=== PATIENT | female | born 1960 | race Caucasian/White ===

== ENCOUNTER → 2017-12-04 | Outpatient (CLI) | payer BC ==
[2017-12-04 16:54] LABS: BLOOD UREA NITROGEN 20 mg/dl (7-18); CALCIUM 9.8 mg/dl (8.5-10.1); CARBON DIOXIDE 28 mmol/L (21-32); CREATININE 1.61 mg/dl (0.60-1.20); GLUCOSE 132 mg/dl (70-99); SODIUM 139 mmol/L (136-145)
[2017-12-04 17:04] LABS: CREATININE RANDOM URINE 92.9 mg/dl
[2017-12-04 17:05] LABS: CHOLESTEROL 162 mg/dl (0-200); LDL CHOLESTEROL CALCULATED 63 mg/dl
[2017-12-05 06:34] LABS: HEMOGLOBIN A1C 8.2 % (4.5-5.6)
== END | disposition home or self-care (01) ==
LOC: C.LABPBG 14:01
PROVIDERS: ATTEND Nurse Practitioner Family
DX: E11.65 Type 2 diabetes mellitus with hyperglycemia (principal)

== ENCOUNTER → 2017-12-19 | Outpatient (CLI) | payer BC ==
[2017-12-19 13:39] LABS: BLOOD UREA NITROGEN 23 mg/dl (7-18); CALCIUM 9.5 mg/dl (8.5-10.1); CARBON DIOXIDE 29 mmol/L (21-32); CREATININE 1.03 mg/dl (0.60-1.20); GLUCOSE 289 mg/dl (70-99); SODIUM 138 mmol/L (136-145)
== END | disposition home or self-care (01) ==
LOC: C.LABPBG 09:48
PROVIDERS: ATTEND Nurse Practitioner Family
DX: E11.65 Type 2 diabetes mellitus with hyperglycemia (principal); E78.5 Hyperlipidemia, unspecified

== ENCOUNTER → 2018-01-21 | Outpatient (CLI) | payer BC | END | disposition home or self-care (01) | LOC: C.PAPS 10:04 | PROVIDERS: ATTEND Obstetrics & Gynecology | DX: Z01.419 Encounter for gynecological examination (general) (routine) without abnormal findings (principal) ==

== ENCOUNTER 2020-05-25 05:50 | Inpatient (IN) ==
--- NOTE | 2020-01-05 08:17 | History & Physical Report ---
Date of Service January 05, 2020 date of surgery: 02-03-20 Assessment & Plan (1) Osteoarthritis of right knee: Risks and benefits of procedure discussed in detail today, patient would like to proceed with a Right total knee replacement at [facility] as scheduled. will obtain medical clearance from Dr Cee prior to surgery as well as obtain PATs at [facility]. Will place on ASA 81mg po bid x 1 month post op, f/u 2 weeks post op for routine post-operative care and x-ray, sooner if having any problems. will make arrangements for HHPT at the time of discharge. At this point in time, has failed conservative measures and would like to proceed with surgical intervention. History of Present Illness Chief Complaint: Right knee pain Primary Care Provider: Roxi Cee DO Ms Hendrickson is a 59 year old female who complains of right knee pain, presents for pre-op evaluation prior to a right total knee replacement at [facility]. She presents with pain on the right side. Currently the patient states that the symptoms are moderate-severe. The pain is described as aching, sharp and throbbing. The symptoms are aggravated by ascending stairs, descending stairs, daily activities, driving, first steps while awake, kneeling, movement, repetitive activities, sleeping on the affected side, squatting, standing, walking and weight bearing. In addition to right knee pain the patient is also experiencing limping, nighttime awakening and pain. Patient has had arthroscopic surgery, on 06/25/2013 Dr. Barakat performed right knee arthroscopy, Partial medial meniscectomy, partial lateral meniscectomy, chondroplasty, patella. she has also had prior cortisone injections without much relief. Allergies Allergy/AdvReac Type Severity Reaction Status Date / Time nifedipine Allergy Unknown LEGS Verified 10/16/19 15:20 SWELLED Fkarrpq-Igx-Jjc Reductase AdvReac Mild Verified 12/26/19 08:05 Inhibitor Sulfa (Sulfonamide AdvReac Mild Verified 12/26/19 08:05 Antibiotics) codeine AdvReac Unknown Verified 12/26/19 08:05 Home Medications Home Medications Medication Instructions Recorded Confirmed Type triamcinolone acetonide 0.025 % See Rx Instructions TOPICAL DAILY 03/31/19 12/26/19 History topical cream gm nystatin 100,000 unit/gram topical 1 appln TOP DAILY #60 gm 07/08/19 12/26/19 Rx powder metformin 1,000 mg tablet 1,000 mg PO BID 90 Days #180 tab 11/03/19 12/26/19 Rx insulin aspart U-100 100 unit/mL See Rx Instructions SUBCUT DAILY 11/06/19 12/26/19 Rx (3 mL) subcutaneous pen #30 ml chlorthalidone 25 mg PO QAM 12/26/19 12/26/19 History insulin degludec [Tresiba 90 units SUBCUT QAM 12/26/19 12/26/19 History FlexTouch U-100] lisinopril 40 mg PO QAM 12/26/19 12/26/19 History metoprolol tartrate 50 mg PO QAM 12/26/19 12/26/19 History wqpphuxk-wob-YL-lycopen-lutein 1 tab PO QAM 12/26/19 12/26/19 History [Centrum Silver] Past Med/Surg History Medical History Carpal tunnel syndrome with surgery Carpal tunnel syndrome of left wrist Diabetes (Chronic) IDDM Dyslipidemia (Chronic) Hypertension (Chronic) Malignant neoplasm of skin (Chronic) Pain in unspecified hand Skin infection, bacterial (Resolved) OCCASIONALLY - USES PRN CREAMS Vitamin D deficiency (Chronic) Surgical History Arthropathy of right knee H/O arthroscopy of left knee H/O dilation and curettage 1980 H/O tubal ligation 08/1982 History of cardiac cath 2002 - IN [place], HARD HYPERTENSION, NOTHING FOUND, AND 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 Beliefs That Will Affect Care: None marital status: Current Living Situation: Spouse current occupational status: employed 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 Other Information That Helps Us Care for You: No Feels Safe at Home: Yes Safety Concerns: Feels Safe At This Time Smoking Status: Former smoker Do You Dip or Chew Tobacco: No ; Smoking End Date: 18 YEARS AGO ; Second Hand Exposure: No ; Hx Alcohol Use: Yes Alcohol type: beer, wine and hard liquor Alcohol Intake Frequency: Rarely Hx Substance Use: No Childhood Exposure to Second-Hand Smoke: No Diet Comment: regular caffeine: Yes (coffee, hot tea) during the past year weight has: remained stable Dental Care, Regularly: Yes Physical Activity Frequency: 3-4 Times per Week Seatbelt Use: always Sunscreen Use: Yes Review of Systems Review of Systems: All systems reviewed & are unremarkable except as noted in HPI & below Constitutional: no fever, no chills and no sweats Respiratory: no cough and no dyspnea Cardiovascular: no chest pain, no dyspnea and no orthopnea Gastrointestinal: no abdominal pain, no nausea and no vomiting Musculoskeletal: as per Subjective / HPI Physical Exam Physical Exam: ht: 5ft 4in wt: 95kg Constitutional: WD/WN, vitals as above no acute distress Respiratory: normal respiratory effort, lungs clear to auscultation no respiratory distress, no labored breathing and does not use accessory muscles Cardiovascular: RRR, no murmur, no edema Gastrointestinal (Abdomen): normal bowel sounds, soft, nontender, no hepatosplenomegaly Musculoskeletal: Knee: + knee abnormal to inspection (Right knee), + effusion (+1 effusion), + limited ROM of knee (ROM 0/3/110), + knee ROM with crepitation, + joint line tenderness (medial joint line) and + Kika's sign positive; no deformity, no skin erythema, no ecchymosis, no valgus laxity, no varus laxity, anterior drawer test negative, Daniel's sign negative and pivot shift test negative Results & Data Results & Data ([facility]) Diagnostic Findings Right Knee X-ray from October 2019 showing showing advanced degenerative changes to the right knee, narrowing of the medial compartment and patello- femoral joint with patellar spurring noted, findings showing joint space narrowing of the medial compartment and patello-femoral joint, osteophyte formation and subchondral sclerosis noted. overall varus alignment. no acute bony pathology noted.
--- NOTE | 2020-05-03 08:36 | History & Physical Report ---
Date of Service May 03, 2020 date of surgery: 05-25-20 Procedure: right total knee replacement Assessment & Plan (1) Osteoarthritis of right knee: Risks and benefits of procedure discussed in detail today, patient would like to proceed with a Right total knee replacement at [facility] as scheduled. will obtain medical clearance from Dr Cee prior to surgery as well as obtain PATs at [facility]. Will place on ASA 81mg po bid x 1 month post op, f/u 2 weeks post op for routine post-operative care and x-ray, sooner if having any problems. will make arrangements for HHPT at the time of discharge. At this point in time, has failed conservative measures and would like to proceed with surgical intervention. History of Present Illness Chief Complaint: Right knee pain Primary Care Provider: Roxi Cee DO Ms Hendrickson is a 59 year old female who complains of right knee pain, presents for pre-op evaluation prior to a right total knee replacement at [facility]. She presents with pain on the right side. Currently the patient states that the symptoms are moderate-severe. The pain is described as aching, sharp and throbbi ng. The symptoms are aggravated by ascending stairs, descending stairs, daily activities, driving, first steps while awake, kneeling, movement, repetitive activities, sleeping on the affected side, squatting, standing, walking and weight bearing. In addition to right knee pain the patient is also experiencing limping, nighttime awakening and pain. Patient has had arthroscopic surgery, on 06/25/2013 Dr. Barakat performed right knee arthroscopy, Partial medial meniscectomy, partial lateral meniscectomy, chondroplasty, patella. she has also had prior cortisone injections without much relief. Allergies Allergy/AdvReac Type Severity Reaction Status Date / Time nifedipine Allergy Unknown LEGS Verified 04/01/20 12:19 SWELLED Fvycsrw-Pje-Ypk Reductase AdvReac Mild Verified 04/01/20 12:19 Inhibitor Sulfa (Sulfonamide AdvReac Mild Verified 04/01/20 12:19 Antibiotics) codeine AdvReac Unknown Verified 04/01/20 12:19 Home Medications Home Medications Medication Instructions Recorded Confirmed Type triamcinolone acetonide 0.025 % See Rx Instructions TOPICAL DAILY 03/31/19 04/01/20 History topical cream gm nystatin 100,000 unit/gram topical 1 appln TOP DAILY #60 gm 07/08/19 04/01/20 Rx powder metformin 1,000 mg tablet 1,000 mg PO BID 90 Days #180 tab 11/03/19 04/01/20 Rx insulin aspart U-100 100 unit/mL See Rx Instructions SUBCUT DAILY 11/06/19 04/01/20 Rx (3 mL) subcutaneous pen #30 ml lisinopril 40 mg PO QAM 12/26/19 04/01/20 History metoprolol tartrate 50 mg PO QAM 12/26/19 04/01/20 History htqypbgs-wur-TH-lycopen-lutein 1 tab PO QAM 12/26/19 04/01/20 History [Centrum Silver] chlorthalidone 25 mg tablet 25 mg PO QAM #30 tab 02/12/20 04/01/20 Rx insulin degludec 100 unit/mL (3 90 units SUBCUT QAM #30 ml 03/30/20 04/01/20 Rx mL) subcutaneous pen phenazopyridine 100 mg tablet 100 mg PO TID PRN #6 tab 04/01/20 04/01/20 Rx ciprofloxacin HCl 500 mg tablet 500 mg PO Q12H 5 Days #10 tab 04/08/20 Rx Past Med/Surg History Medical History Carpal tunnel syndrome with surgery Carpal tunnel syndrome of left wrist Diabetes IDDM Dyslipidemia Hypertension Malignant neoplasm of skin Pain in unspecified hand Skin infection, bacterial OCCASIONALLY - USES PRN CREAMS Vitamin D deficiency Surgical History Arthropathy of right knee H/O arthroscopy of left knee H/O dilation and curettage 1980 H/O tooth extraction H/O tubal ligation 08/1982 History of cardiac cath 2002 - IN [place], HARD HYPERTENSION, NOTHING FOUND, AND 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 History of carpal tunnel surgery History of esophagogastroduodenoscopy (EGD) S/P tonsillectomy 1965 Family History Father Hypertension Cancer, Onset Age: 69 Initially lung then spread to brain Myocardial infarction, Onset Age: 50 Sister Papillary thyroid carcinoma Thyroid disease Thyroid cancer Denies family history of Colon cancer Ovarian cancer Prostate cancer Breast cancer Social History Smoking Status: Former smoker Smoking End Date: 18 YEARS AGO; Second Hand Exposure: No; Do You Dip or Chew Tobacco: No; Hx Alcohol Use: Yes Alcohol type: beer, wine and hard liquor Hx Substance Use: No Preferred Language: Burundian Communication Ability: Effective Visual Impairment: No Limitations Hearing Ability: Normal 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: Yes Beliefs That Will Affect Care: None marital status: Current Living Situation: Spouse current occupational status: employed 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 Other Information That Helps Us Care for You: No Feels Safe at Home: Yes Safety Concerns: Feels Safe At This Time Childhood Exposure to Second-Hand Smoke: No Diet Comment: regular caffeine: Yes (coffee, hot tea) during the past year weight has: remained stable Dental Care, Regularly: Yes Physical Activity Frequency: 3-4 Times per Week Seatbelt Use: always Sunscreen Use: Yes Review of Systems Review of Systems: All systems reviewed & are unremarkable except as noted in HPI & below Constitutional: no fever, no chills and no sweats Respiratory: no cough and no dyspnea Cardiovascular: no chest pain, no dyspnea and no orthopnea Gastrointestinal: no abdominal pain, no nausea and no vomiting Musculoskeletal: as per Subjective / HPI Physical Exam Physical Exam: ht: 5ft 4in wt: 95kg Constitutional: WD/WN, vitals as above no acute distress Respiratory: normal respiratory effort, lungs clear to auscultation no respiratory distress, no labored breathing and does not use accessory muscles Cardiovascular: RRR, no murmur, no edema Gastrointestinal (Abdomen): normal bowel sounds, soft, nontender, no hepatosplenomegaly Musculoskeletal: Knee: + knee abnormal to inspection (Right knee), + effusion (+1 effusion), + surgical incision, + limited ROM of knee (ROM 0/3/110), + knee ROM with crepitation, + joint line tenderness (medial joint line) and + Kika's sign positive; no deformity, no skin erythema, no ecchymosis, no valgus laxity, no varus laxity, anterior drawer test negative, Daniel's sign negative and pivot shift test negative Results & Data Results & Data ([facility]) Diagnostic Findings Right Knee X-ray from October 2019 showing showing advanced degenerative changes to the right knee, narrowing of the medial compartment and patello- femoral joint with patellar spurring noted, findings showing joint space narrowing of the medial compartment and patello-femoral joint, osteophyte fo rmation and subchondral sclerosis noted. overall varus alignment. no acute bony pathology noted.
--- NOTE | 2020-05-17 11:04 | Anesthesiology Consultation ---
Date of Service May 17, 2020 Assessment & Plan (1) Encounter for pre-operative examination: Chart Review Chart Review: Acceptable Risk for Surgery (pending final surgeon ordered PCP clearance ) and Patient NOT seen in Pre Admission Testing Pt has surgeon ordered PCP clearance. PCP initially cleared patient in December 2019 but since that time- pt has had issues with recurrent UTIs. Did inform surgeon's office. Surgeon's office will discuss with Dr. Barakat and also with PCP office to ensure patient is still able to proceed with surgery. - Check BSG AM DOS Per nursing assessment 05/14/2020, patient denies any recent travel. No known Covid positive contacts or Covid related symptoms. Scheduled for preop Covid testing 05/19/20. Patient seen by urology 05/14/2020 = patient is new and is seen for recurrent UTIs. Urology ordered imaging to rule out structural issues for cause. We will start extended course of Macrobid. We will also plan for cystoscopy in office to rule out abnormalities. Patient seen by PCP 04/01/2020 = patient presented for routine follow-up of chronic conditions. UTIpatient with history of frequent UTIs. Continues to have symptoms. UA and culture orderedwill treat pending results. Hypertensioncurrently at goal. Continue current medications. Diabetesnot at goal. Continue following with endocrinology. Hyperlipidemiastable. PCP is aware of patient's knee pain- aware knee surgery was canceled from December 2019. History Surgery Operation Date: 05/25/20 07:15 Proposed Procedures p Right Total Knee Arthroplasty - Roosevelt Barakat DO Height/Weight Height: 5 ft 4 in Weight: 95.254 kg Allergies Allergy/AdvReac Type Severity Reaction Status Date / Time Trbkdgu-Dbe-Ejo Reductase AdvReac Mild Muscle Pain Verified 05/14/20 16:17 Inhibitor Sulfa (Sulfonamide AdvReac Mild metalic Verified 05/14/20 16:17 Antibiotics) taste; nausea codeine AdvReac Unknown "makes my Verified 05/14/20 16:17 heart race" nifedipine AdvReac Unknown BLLE edema Verified 05/14/20 16:17 Medications Home Medications Medication Instructions Recorded Confirmed Last Taken triamcinolone acetonide 0.025 % See Rx Instructions TOPICAL DAILY 03/31/19 05/14/20 Unknown topical cream gm nystatin 100,000 unit/gram topical 1 appln TOP DAILY #60 gm 07/08/19 05/14/20 Unknown powder metformin 1,000 mg tablet 1,000 mg PO BID 90 Days #180 tab 11/03/19 05/14/20 Unknown insulin aspart U-100 100 unit/mL See Rx Instructions SUBCUT DAILY 11/06/19 05/14/20 Unknown (3 mL) subcutaneous pen #30 ml lisinopril 40 mg PO QAM 12/26/19 05/14/20 Unknown metoprolol tartrate 50 mg PO QAM 12/26/19 05/14/20 Unknown kvpzdvbb-nvf-GF-lycopen-lutein 1 tab PO QAM 12/26/19 05/14/20 Unknown [Centrum Silver] chlorthalidone 25 mg tablet 25 mg PO QAM #30 tab 02/12/20 05/14/20 Unknown phenazopyridine 100 mg tablet 100 mg PO TID PRN #6 tab 04/01/20 05/14/20 Unknown insulin degludec [Tresiba 94 units SUBCUT QAM 05/14/20 05/14/20 Unknown FlexTouch U-100] ketoconazole 1 applic TOPICAL UD 05/14/20 05/14/20 Unknown ketoconazole 1 ea TOPICAL UD 05/14/20 05/14/20 Unknown nitrofurantoin 100 mg PO Q12H 30 Days #60 cap 05/14/20 05/14/20 Unknown monohydrate/macrocrystals 100 mg capsule Past Medical History Medical History Diabetes IDDM Dyslipidemia Hypertension Malignant neoplasm of skin Recurrent UTI reason for abx Skin infection, bacterial OCCASIONALLY - USES PRN CREAMS Past Family History Family History Father Hypertension Cancer, Onset Age: 69 Initially lung then spread to brain Myocardial infarction, Onset Age: 50 Sister Papillary thyroid carcinoma Thyroid disease Thyroid cancer Denies family history of Colon cancer Ovarian cancer Prostate cancer Breast cancer Past Surgical History Surgical History (Updated 05/17/20 @ 11:04 by Angie Garcia PA-C) Arthropathy of right knee H/O arthroscopy of left knee H/O dilation and curettage 1980 H/O tooth extraction H/O tubal ligation 08/1982 History of cardiac cath 2002 - IN [place], HYPERTENSION, NOTHING FOUND, AND NO 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 History of carpal tunnel surgery History of esophagogastroduodenoscopy (EGD) S/P tonsillectomy 1965 Social History Smoking Status: Former smoker Do You Dip or Chew Tobacco: No Smoking End Date: 18 YEARS AGO Hx Alcohol Use: Yes Alcohol type: beer, wine and hard liquor alcohol intake frequency: holidays/special occasions only Hx Substance Use: No Testing Laboratory Results Laboratory Tests 04/22/20 04/22/20 04/22/20 09:14 09:15 09:16 WBC 6.19 Hgb 13.6 Hct 40.0 Plt Count 239 PT INR APTT Sodium 139 Potassium 4.2 Chloride 104 Carbon Dioxide 30 BUN 23 H Creatinine 1.00 Glucose 256 H Hemoglobin A1c 7.6 H 04/22/20 09:16 WBC Hgb Hct Plt Count PT 10.3 INR 1.0 APTT 25.1 Sodium Potassium Chloride Carbon Dioxide BUN Creatinine Glucose Hemoglobin A1c Urine culture 05/14/20= E. coli.> 100,000 SF U/mL (pt on antibiotic) Electrocardiogram Date: 01/08/20 Sinus rhythm at 66 bpm. Septal myocardial infarction of undetermined age. (Septal infarct present since at least Oct 2018 per records review- PCP aware and per 01/08/20 office note- pt clinically stable cardiac samaniego and was cleared for surgery at that time) Chest X-Ray Date: 10/31/19 Findings: + NAD Mild prominence of cardiac silhouette without CHF.
[2020-05-25] MEDS ORDERED: TRANEXAMIC ACID 1,000 MG **IV Pre-op IV SCH (06:00)
[2020-05-25] MEDS ORDERED: VANCOMYCIN HCL 1,500 MG in SODIUM CHLORIDE 0.9% 500 ML IV SCH (06:00)
[2020-05-25] MEDS ORDERED: ACETAMINOPHEN 500 MG TAB PO SCH (06:00)
[2020-05-25] MEDS ORDERED: VANCOMYCIN HCL 1,000 MG/270 ML BAG IV SCH (06:00)
[2020-05-25] MEDS ORDERED: METOCLOPRAMIDE HCL 10 MG TABLET PO SCH (06:00)
[2020-05-25] MEDS ORDERED: GABAPENTIN 600 MG DOSE PO SCH (06:00)
[2020-05-25] MEDS ORDERED: TRANEXAMIC ACID 1,000 MG **IV Intra-op IV SCH (06:00)
[2020-05-25] MEDS ORDERED: dexAMETHasone 4 MG TAB PO SCH (06:00)
[2020-05-25] MEDS ORDERED: FAMOTIDINE 20 MG TAB PO SCH (06:00)
[2020-05-25] MEDS ORDERED: ROPIVACAINE 0.5% HCL/PF 150 MG, BUPIVACAINE 0.5% MPF 30 ML, EPINEPHrine 30MG/30ML (OR U... INSTIL SCH (06:00)
[2020-05-25] MEDS ORDERED: LR 500ML BOLUS, THEN 15ML/HR IV SCH (06:00)
[2020-05-25] MEDS ORDERED: EPINEPHrine INJ 1 MG/ML AMP ONE (06:38)
[2020-05-25] MEDS ORDERED: BUPIVACAINE 0.5 % 5 MG/1 ML PF 10ML VIAL ONE (06:38)
[2020-05-25] MEDS ORDERED: ROPIVACAINE 0.5% 5 MG/ML 30 ML VIAL ONE (06:39)
[2020-05-25] MEDS ORDERED: MIDAZOLAM HCL 1 MG/ML 2ML VIAL ONE (07:07)
[2020-05-25] MEDS ORDERED: fentaNYL citrate 100 MCG/2 ML VIAL ONE ×2 (07:07→09:01)
[2020-05-25] MEDS ORDERED: ONDANSETRON INJ 2 MG/ML 2 ML VIAL ONE ×2 (07:10→09:01)
[2020-05-25] MEDS ORDERED: LIDOCAINE HCL 2% 2 ML VIAL/AMP(20MG/ML) INFIL ONE (07:10)
--- NOTE | 2020-05-25 07:17 | History & Physical Bridge Note ---
Date of Service May 25, 2020 History & Physical Bridge Note I have examined the patient, reviewed the History & Physical and in the interval since the performance of the History & Physical I have noted the following changes of clinical significance: no changes noted
[2020-05-25] MEDS ORDERED: ORTHO JOINT ANESTHETIC ONE (08:02)
[2020-05-25] MEDS ORDERED: BACITRACIN INJ 50,000 UNIT VIAL ONE (08:02)
[2020-05-25] MEDS ORDERED: HYDROmorphone INJ 2 MG/ML SYR/VIAL ONE (08:47)
[2020-05-25] MEDS ORDERED: SODIUM CHLORIDE 0.9% INJ 10 ML VIAL ONE (08:49)
[2020-05-25] MEDS ORDERED: DEXAMETHASONE SOD INJ 4 MG/ML VIAL ONE (09:01)
--- NOTE | 2020-05-25 09:47 | Operative Report ---
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[employer] PEARL Estimated Blood Loss 5 Findings Consistent with Post-Op Diagnosis Patient presents with severe end-stage tricompartmental degenerative joint disease varus alignment subchondral sclerosis marginal osteophytes eburnated b one-on-bone with a moderate to large effusion Specimens Bone and cartilage Drains Medium bore Hemovac Anesthesia Type MAC Spinal Regional Complications none Disposition Accompanied Patient To Recovery: No Disposition: Recovery Room Indications Patient presents with severe end-stage DJD no response to conservative management clinic physical therapy anti-inflammatories relative rest activity modification corticosteroid injections Visco supplementation the above intraoperative findings are noted time surgery. Description of Procedure After proper prepping and draping of the Right lower extremity anterior midline incision was made over the region of the extensor extensor mechanism after meticulous hemostasis was obtained and maintained in subcutaneous tissues a medial parapatellar incision was made The patella was subluxed lateralward the medial lateral gutter were cleaned from any hypertrophic synovitis and scar tissue of the distal femoral block was placed and the distal femoral osteotomy cut was made subsequently the chamfers anterior and posterior osteotomy cuts we re made utilizing the 4-in-1 block the tibia was subsequently subluxed anteriorward medial and ateral meniscal remnants were excised in their entirety remnants of the anterior and posterior cruciate ligaments were excised in their entirety excellent exposure of the proximal tibia was obtained the tibial osteotomy guide was placed on the proximal tibial osteotomy cut was made once again the knee was irrigated with copious amounts of sterile saline solution the patella was subsequently everted lateralward thickened scar tissue around the patella was removed the patella was subsequently cut utilizing a freehand technique and was drilled prepared for final preparation and placement of patella socially flexion-extension gaps were checked and the equal and symmetric trials were placed to the appropriate femoral and tibial trials with poly-spacer being placed for equal flexion and extension gaps and full range of motion including extension to 0 and flexion to 140 the trial components after having been taken to recovery range of motion was subsequently removed meticulous hemostasis was obtained and maintained subsequently a knee block injection of joint cocktail including ropivacaine 0.5% 150 mg. Bupivacaine 0.5% epinephrine 1-200,030 mL's toradol 30 mg dexamethasone 4 mg ketamine 10 mg clonidine 100 micrograms normal saline solution 30 mg was infiltrated into the soft tissues of the posterior knee medial lateral gutters and periosteal synovium special attention was paid to protect neurovascular structures at all times subsequently trial components having been removed the knee was irrigated with sterile saline solution. debris was removed the proximal tibia was subsequently prepared and was made ready for the placement of the tibial component tibial component was also cemented and tamped into position the femoral component was subsequently placed and cemented in the position the patellar component was subsequently cemented in position because hemostasis once again obtained and maintained wound having been thoroughly irrigated with debridement and debridement lavage was performed as well as a medial parapatellar incision closed with #1 Vicryl in interrupted fashion subcutaneous was closed with #2 Vicryl skin was closed with skin clips. PA-C was necessary for prepping and drapping as well as wound closure of deep fascia Sub cutaneous tissue and skin and was necessary for the case. A sterile compressive dressing was placed patient was taken to recovery in stable condition of report dictated by Yuval I attest to the content of the Intraoperative Record and any orders documented therein. Any exceptions are noted below. I attest to the content of the Intraoperative Record and any orders documented therein. Any exceptions are noted below.
[2020-05-25] MEDS ORDERED: PHENYLEPHRINE 100MCG/ML 5ML SYR ONE (09:53)
[2020-05-25] MEDS ORDERED: ATROPINE SULFATE 0.1 MG/ML 10ML SYR IV PRN (10:30)
[2020-05-25] MEDS ORDERED: PROMETHAZINE HCL 12.5 MG in SODIUM CHLORIDE 0.9% 50 ML IV PRN (10:30)
[2020-05-25] MEDS ORDERED: ONDANSETRON INJ 2 MG/ML 2 ML VIAL IV PRN (10:30)
[2020-05-25] MEDS ORDERED: fentaNYL citrate 100 MCG/2 ML VIAL IV PRN (10:30)
[2020-05-25] MEDS ORDERED: NALOXONE HCL 0.4 MG/1 ML VIAL/CARP IV PRN ×2 (10:30→12:22)
[2020-05-25] MEDS ORDERED: ePHEDrine sulfate 50 MG/ML AMP IV PRN (10:30)
[2020-05-25] MEDS ORDERED: FLUMAZENIL 0.1 MG/1 ML 10 ML VIAL IV PRN (10:30)
[2020-05-25] MEDS ORDERED: LABETALOL HCL IV 5 MG/ML 20ML IV PRN (10:30)
--- NOTE | 2020-05-25 10:50 | XRay Report ---
TWO VIEWS RIGHT KNEE CLINICAL HISTORY: Postoperative examination. FINDINGS: AP and crosstable lateral portable views of the right knee are obtained. A right knee arthr oplasty is in near anatomic alignment. There has been undersurface remodeling of the patella. No acut e fracture is seen. There are expected postoperative changes around the knee including a surgical stephy in, soft tissue edema, and subcutaneous gas. IMPRESSION: Expected postoperative changes status post right knee arthroplasty. No acute fracture is seen. ACT 112: Negative or not required by law. Electronically signed by: Beto Lancaster M.D. 05/25/2020 10:49 AM
--- NOTE | 2020-05-25 11:45 | Anesthesiology Progress Note ---
Date of Service May 25, 2020 Anesthesia Post Procedure Vital Signs Vital Signs: Temp Pulse Resp BP Pulse Ox 05/25/20 11:30 90 14 123/63 93 05/25/20 11:20 89 14 94/71 L 93 05/25/20 11:10 36.5 C 90 14 101/67 93 05/25/20 11:00 88 14 92/59 L 93 05/25/20 10:50 87 14 97/52 L 92 05/25/20 10:40 93 H 12 105/53 L 91 05/25/20 10:31 36.6 C 93 H 12 96/64 L 95 05/25/20 06:44 37.1 C 65 18 156/82 H 96 Pain Intensity Right Knee: Pain Intensity: 5 Transfer of Care Handoff Completed per policy Notes Mental Status: alert / awake / arousable Patient Amnestic to Procedure: Yes Nausea / Vomiting: adequately controlled Pain: adequately controlled Airway Patency, RR, SpO2: stable & adequate BP & HR: stable & adequate Hydration State: stable & adequate Anesthetic Complications: no major complications apparent
[2020-05-25] MEDS ORDERED: HYDROmorphone INJ 0.5 MG/0.5 ML SYR IV PRN (12:22)
[2020-05-25] MEDS ORDERED: MAGNESIUM HYDROXIDE SUSP 30 ML UDC PO PRN (12:22)
[2020-05-25] MEDS ORDERED: METOCLOPRAMIDE HCL INJ 5 MG/ML 2 ML VIAL IV PRN (12:22)
[2020-05-25] MEDS ORDERED: bisacodyL 10 MG SUPP PR PRN (12:22)
[2020-05-25] MEDS ORDERED: PHARMACY GLYCEMIC MGMT CONSULT PRN (12:38)
[2020-05-25] MEDS: SODIUM CHLORIDE 0.9% 1000ML 1,000 ML IV SCH ×2 (12:39→21:34)
[2020-05-25] MEDS ORDERED: DEXTROSE 50% 50 ML SYRINGE IV PRN (12:45)
[2020-05-25] MEDS ORDERED: GLUCOSE 10 TABS/TUBE PO PRN (12:45)
[2020-05-25] MEDS ORDERED: NovoLIN-N (NPH) PER UNIT CHARGE SQ ONE (12:45)
[2020-05-25] MEDS ORDERED: GLUCOSE 40% GEL 15 GM TUBE PO PRN (12:45)
[2020-05-25] MEDS ORDERED: GLUCAGON FOR INJ 1 MG VIAL IM PRN (12:45)
[2020-05-25] MEDS ORDERED: CARBOHYDRATES FOR HYPOGLYCEMIA PO PRN (12:45)
--- NOTE | 2020-05-25 12:53 | Pharmacy Report ---
Glycemic Control Consultation - Date of Service May 25, 2020 - Scope Scope: Glycemic Pharmacist consulted for glycemic control and to write orders per [facility] inpatient glycemic control protocol. - Objective Weight: 94.347 kg Accuchecks BSG (last 24hrs): 05/25/20 05/25/20 05/25/20 06:09 10:37 12:00 POC Glucose 83 150 H 218 H - Recent Pertinent Medications Outpatient Anti-diabetic Regimen: * Tresiba 94 units SC HS * Novolog 24 units SC qAM, 22 units SC w/ lunch and dinner, and 10 units SC with snacks * TDD of insulin: > 162 units per day * Metformin 1000 mg PO BIDM * A1c = 7.6 % (04/22/20) Risk Factors for Insulin Resistance: * Steroids: Dexamethasone 4 mg IV x 1, 8 mg PO x 1, and intra-articular ortho mix (containing dexamethasone) intra-operatively * IVF: NSS @100 mL/hr * Recent Surgery: POD #0 s/p right TKA * Diet: T2DM - Assessment & Plan Assessment & Plan: ASSESSMENT: * HAZEL is a 59 year old female POD #0 s/p right total knee arthroplasty * Received IV/PO dexamethasone, as well as intra-articular ortho mix intraoperatively * Postoperative BSG of 218 mg/dL * Will order NPH 35 units SC x 1 (~0.4 unit/kg) to cover for intra-operative dexamethasone * Fasting BSG of 83 mg/dL this morning - will utilize Lantus scale this evening * TDD of outpatient insulin regimen: > 162 units per day * Will utilize aggressive Novolog parameters PLAN FOR INPATIENT GLYCEMIC CONTROL: * Holding outpatient oral diabetes medications (metformin) * Basal insulin * NPH 35 units (~0.4 unit/kg) x 1 * Lantus scale this evening to provide up to 94 units (see EHR for details) * Bolus insulin * NovoLog per scale ACHS or Q6hrs while NPO * Goal Range: Low 110 mg/dL - High 140 mg/dL * Correction Factor: 12 mg/dL/unit * Nutritional / Prandial insulin per carb ratio of 1 unit per 3 grams CHO consumed * 0000,0400 checks overnight with same parameters * Please note that the plan above was derived based on current level of insulin resistance and hospital stress. These recommendations are appropriate for inpatient admission only. Plan of care upon discharge will need to be reassessed to avoid potential outpatient hypo/hyperglycemia. Thank you.
[2020-05-25] MEDS: ACETAMINOPHEN 500 MG TAB PO SCH ×2 (13:41→21:16)
[2020-05-25] MEDS: CEFAZOLIN 2000MG 2,000 MG/15 ML SYR IV SCH ×2 (13:42→21:17)
[2020-05-25] MEDS: ONDANSETRON INJ 2 MG/ML 2 ML VIAL IV PRN ×2 (13:44→20:26)
--- NOTE | 2020-05-25 13:45 | Hospitalist Consultation ---
Date of Consultation May 25, 2020 Assessment & Plan (1) Osteoarthritis of right knee: S/p right TKA with Dr. Barakat on 05/25. - No operative complications per operative note - Post-op care per primary team - DVT ppx per primary team - At risk for expected acute blood loss anemia. Will trend hgb. Can offer IV iron as needed while inpatient. (2) Diabetes: A1c was 7.6% in 04/2020. - Hold home metformin - Glycemic pharmacist consulted - Long acting and sliding scale insulin per their recommendations - Given A1c, can discharge on home regimen with outpatient adjustment as needed (3) Hypertension: BP is 135/81 after surgery. - Continue home chlorthalidone, metoprolol, and lisinopril - Monitor (4) Recurrent UTI: Is on cefazolin as routine post-operative abx. Would pull Morris as soon as able, but otherwise no acute management. (5) Dyslipidemia: In MAR, but not on statin or fibrate as outpatient per records. - Outpatient follow up (6) DVT prophylaxis: ASA 81 mg PO BID per primary team Thank you for the consult. The Hospitalist team will follow along tomorrow. Please page/call with any questions or concerns. History of Present Illness Attending Physician: Roosevelt Barakat DO History of Present Illness 59 yo F w/ hx of HTN, DM who presents as a routine medical consult after right TKA with Dr. Barakat on 05/25. Presently the patient is feeling well as her block is still active, and she is not in significant pain. She does note some emesis after her surgery, but with Zofran, she is feeling some better. Allergies Allergy/AdvReac Type Severity Reaction Status Date / Time chlorhexidine Allergy Mild Rash Verified 05/25/20 07:01 Ntmfcny-Ime-Brp Reductase AdvReac Mild Muscle Pain Verified 05/25/20 06:07 Inhibitor Sulfa (Sulfonamide AdvReac Mild metalic Verified 05/25/20 06:07 Antibiotics) taste; nausea codeine AdvReac Unknown "makes my Verified 05/25/20 06:07 heart race" nifedipine AdvReac Unknown BLLE edema Verified 05/25/20 06:07 Home Medications Home Medications Medication Instructions Recorded Confirmed Type triamcinolone acetonide 0.025 % See Rx Instructions TOPICAL DAILY 03/31/19 05/25/20 History topical cream gm nystatin 100,000 unit/gram topical 1 appln TOP DAILY #60 gm 07/08/19 05/25/20 Rx powder metformin 1,000 mg tablet 1,000 mg PO BID 90 Days #180 tab 11/03/19 05/25/20 Rx insulin aspart U-100 100 unit/mL See Rx Instructions SUBCUT DAILY 11/06/19 05/25/20 Rx (3 mL) subcutaneous pen #30 ml lisinopril 40 mg PO QAM 12/26/19 05/25/20 History metoprolol tartrate 50 mg PO QAM 12/26/19 05/25/20 History auofdnux-wip-IR-lycopen-lutein 1 tab PO QAM 12/26/19 05/25/20 History [Centrum Silver] phenazopyridine 100 mg tablet 100 mg PO TID PRN #6 tab 04/01/20 05/25/20 Rx insulin degludec [Tresiba 94 units SUBCUT QAM 05/14/20 05/25/20 History FlexTouch U-100] ketoconazole 1 applic TOPICAL UD 05/14/20 05/25/20 History ketoconazole 1 ea TOPICAL UD 05/14/20 05/25/20 History nitrofurantoin 100 mg PO Q12H 30 Days #60 cap 05/14/20 05/25/20 Rx monohydrate/macrocrystals 100 mg capsule chlorthalidone 25 mg tablet 25 mg PO QAM #90 tab 05/19/20 05/25/20 Rx Patient History Medical History Diabetes IDDM Dyslipidemia Hypertension Malignant neoplasm of skin Recurrent UTI reason for abx Skin infection, bacterial OCCASIONALLY - USES PRN CREAMS Surgical History Arthropathy of right knee H/O arthroscopy of left knee H/O dilation and curettage 1980 H/O tooth extraction H/O tubal ligation 08/1982 History of cardiac cath 2002 - IN [place], HYPERTENSION, NOTHING FOUND, AND 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 History of carpal tunnel surgery History of esophagogastroduodenoscopy (EGD) S/P tonsillectomy 1965 Family History Father Hypertension Cancer, Onset Age: 69 Initially lung then spread to brain Myocardial infarction, Onset Age: 50 Sister Papillary thyroid carcinoma Thyroid disease Thyroid cancer Denies family history of Colon cancer Ovarian cancer Prostate cancer Breast cancer Social History Smoking Status: Former smoker Smoking End Date: 18 YEARS AGO; Second Hand Exposure: No; Do You Dip or Chew Tobacco: No; Tobacco Cessation Education Requested by Patient: No Hx Alcohol Use: Yes Alcohol type: beer, wine and hard liquor Hx Substance Use: No Preferred Language: Nigerian Communication Ability: Effective Visual Impairment: No Limitations Hearing Ability: Normal 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: 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 Beliefs That Will Affect Care: None marital status: Current Living Situation: Spouse current occupational status: employed 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 Other Information That Helps Us Care for You: No Feels Safe at Home: Yes Safety Concerns: Feels Safe At This Time Childhood Exposure to Second-Hand Smoke: No Diet Comment: regular caffeine: Yes (coffee, hot tea) during the past year weight has: remained stable Dental Care, Regularly: Yes Physical Activity Frequency: 3-4 Times per Week Seatbelt Use: always Sunscreen Use: Yes Review of Systems Review of Systems: All systems reviewed & are unremarkable except as noted in HPI & below Physical Exam Constitutional: WD/WN, vitals as above Eyes: EOM intact bilaterally; no conjunctival abnormality ENMT: external ear and nose normal, oropharynx normal Neck: trachea midline, no thyromegaly normal visual inspection Respiratory: normal respiratory effort, lungs clear to auscultation no respiratory distress Cardiovascular: RRR, no murmur, no edema Gastrointestinal (Abdomen): Inspection/Auscultation: abdomen normal to inspection; abdomen not distended Musculoskeletal: no cyanosis or clubbing, extremities motor strength 5/5 Extremities: + extremities abnormal to inspection (Right knee bandaged) Knee: + surgical drain present (Mild serous output) Skin: no rashes, warm and dry Neurologic: moves all extremities and awake Psychiatric: Orientation: alert, oriented to person and cooperative Results & Data Results & Data ([facility]) Vital Signs (Past 12 Hours) Vital Signs Temp Pulse Resp BP Pulse Ox 05/25/20 12:39 77 16 135/81 90 05/25/20 12:15 36.4 C L 81 16 121/75 94 05/25/20 11:45 90 14 116/58 L 94 05/25/20 11:30 90 14 123/63 93 05/25/20 11:20 89 14 94/71 L 93 05/25/20 11:10 36.5 C 90 14 101/67 93 05/25/20 11:00 88 14 92/59 L 93 05/25/20 10:50 87 14 97/52 L 92 05/25/20 10:40 93 H 12 105/53 L 91 05/25/20 10:31 36.6 C 93 H 12 96/64 L 95 05/25/20 06:44 37.1 C 65 18 156/82 H 96 PG Care Time/CCT Total # of Minutes Spent Total Time Spent with Patient: Total time spent is greater than 50% in coordination of care (as documented) at patient's floor/unit and/or counseling patient: Coding Level of Care Code 40128 Office/OBS Consult Lvl 4 Diagnoses Osteoarthritis of right knee M17.11 Diabetes E11.9 Hypertension I10 Recurrent UTI N39.0 Dyslipidemia E78.5 DVT prophylaxis Z29.9
[2020-05-25] MEDS: INSULIN ASPART 100 UNITS/ML 3 ML PEN SC SCH ×3 (14:33→21:18)
[2020-05-25] MEDS: FERROUS GLUCONATE 324 MG TAB PO SCH (16:35)
[2020-05-25] MEDS ORDERED: INSULIN GLARGINE SOLOSTAR 100 UNITS/ML 3 ML PEN SC SCH (21:00)
[2020-05-25] MEDS ORDERED: SENNA 8.6 MG TAB PO SCH (21:00)
[2020-05-25] MEDS: DOCUSATE SODIUM 100 MG CAP PO SCH (21:16)
[2020-05-25] MEDS: ASPIRIN 81 MG ECTAB PO SCH (21:16)
[2020-05-26] MEDS: INSULIN ASPART 100 UNITS/ML 3 ML PEN SC SCH ×4 (00:20→13:09)
[2020-05-26] MEDS: OXYCODONE HCL IR 5 MG TAB (IMMEDIATE RELEASE) PO PRN ×3 (03:26→13:26)
[2020-05-26] MEDS: ACETAMINOPHEN 500 MG TAB PO SCH ×2 (05:11→13:27)
[2020-05-26 05:49] LABS: Hematocrit (blood only) 33.8 % (37-47); Hemoglobin 11.6 g/dL (12.0-16.0); Mean Corpuscular Hemoglobin 29.9 pg (25-34); Mean Corpuscular Hgb Conc 34.3 g/dL (32-36); Mean Corpuscular Volume 87.1 fL (80-100); Mean Platelet Volume 10.8 fL (7.4-10.4); Platelet Count 203 K/uL (130-400); RDW Coefficient of Variation 13.3 % (11.5-14.5); RDW Standard Deviation 42.5 fL (36.4-46.3); Red Blood Count 3.88 M/uL (4.2-5.4); White Blood Count 13.48 K/uL (4.8-10.8)
[2020-05-26 06:19] LABS: Calcium 7.9 mg/dl (8.5-10.1); Creatinine Clr Calc Pharmacy 64.9 ml/min; Est GFR (African American) 68.1; Est GFR (Non-African American) 58.8; Potassium 3.6 mmol/L (3.5-5.1)
--- NOTE | 2020-05-26 07:51 | Orthopedic Progress Note ---
Date of Service May 26, 2020 Assessment & Plan (1) History of total right knee replacement: POD #1 s/p Right TKA pt/ot dvt proph with STANISLAV/SCD/ASA plan for d/c home with HHPT, likely d/c later today Admission and Anticipated Discharge Date Admission Date: May 25, 2020 Subjective POD #1 s/p Right TKA Review of Systems Constitutional: no fever, no chills and no sweats Respiratory: no cough and no dyspnea Cardiovascular: no chest pain and no dyspnea Gastrointestinal: no abdominal pain, no nausea and no vomiting Physical Exam Physical Exam: Vital Signs Temp 36.8 C 05/26/20 07:22 Pulse 68 05/26/20 07:22 Resp 16 05/26/20 07:22 BP 133/74 05/26/20 07:22 Pulse Ox 95 05/26/20 07:22 Intake & Output 05/25/20 05/26/20 05/26/20 18:59 06:59 18:59 Intake Total 2730 / 4490.000 1760.000 / 4490.00 0 Output Total 505 / 1730 1225 / 1730 Balance 2225 / 2760.000 535.000 / 2760.000 Weight 94.347 kg Intake: IV 1330 / 3090.000 1760.000 / 3090.00 0 Lr 1,000 ml @ 15 mls/hr IV . 600 / 600 Q24H [facility] Rx#:[id number] Nss 1000ML 1,0 00 ml @ 100 mls/ 1760.000 / 1760.00 0 hr IV .Q10H SC H Rx#:[id number] TRANEXAMIC ACI D / 0.7% NACL 1, 200 / 200 000 mg In 100 ml @ 600 mls/hr IV TODAY@0600 [facility] Rx#:[id number] Vancomycin HCl 1,500 mg In Nss 530 / 530 500 ml @ 200 m ls/hr IV PREOP [facility] Rx#:[id number] IV Perioperative 1400 / 1400 Output: Urine 850 / 850 Emesis 470 / 720 250 / 720 Estimated Blood Loss 5 / 5 Drain Output 30 / 155 125 / 155 Right Hip Hemo vac 30 / 155 125 / 155 Constitutional: WD/WN, vitals as above no acute distress Musculoskeletal: Right Leg: NVDI, calf SNT, negative coy sign. DP palpable, able to wiggle toes/ankle movement without difficulty. dressing clean dry and intact. Results & Data ([facility]) Vital Signs (Past 12 Hours) Vital Signs Temp Pulse Resp BP Pulse Ox 05/26/20 07:22 36.8 C 68 16 133/74 95 05/26/20 03:11 37.1 C 70 16 122/72 94 05/25/20 22:54 37.1 C 77 16 145/75 H 93 Laboratory Results Laboratory Results WBC 13.48 K/uL (4.8-10.8) H 05/26/20 05:16 RBC 3.88 M/uL (4.2-5.4) L 05/26/20 05:16 Hgb 11.6 g/dL (12.0-16.0) L 05/26/20 05:16 Hct 33.8 % (37-47) L 05/26/20 05:16 MCV 87.1 fL (80-100) 05/26/20 05:16 MCH 29.9 pg (25-34) 05/26/20 05:16 MCHC 34.3 g/dL (32-36) 05/26/20 05:16 RDW Std Deviation 42.5 fL (36.4-46.3) 05/26/20 05:16 RDW Coeff of Hugh 13.3 % (11.5-14.5) 05/26/20 05:16 Plt Count 203 K/uL (130-400) 05/26/20 05:16 MPV 10.8 fL (7.4-10.4) H 05/26/20 05:16 Sodium 142 mmol/L (136-145) 05/26/20 05:16 Potassium 3.6 mmol/L (3.5-5.1) 05/26/20 05:16 Chloride 109 mmol/L (98-107) H 05/26/20 05:16 Carbon Dioxide 26 mmol/L (21-32) 05/26/20 05:16 Anion Gap 7.0 (3-11) 05/26/20 05:16 BUN 24 mg/dl (7-18) H 05/26/20 05:16 Creatinine 1.04 mg/dl (0.6-1.2) 05/26/20 05:16 Est Cr Clr Drug Dosing 64.9 ml/min 05/26/20 05:16 Est GFR ( Amer) 68.1 05/26/20 05:16 Est GFR (Non-Af Amer) 58.8 05/26/20 05:16 BUN/Creatinine Ratio 23.0 (10-20) H 05/26/20 05:16 Glucose 119 mg/dl (70-99) H 05/26/20 05:16 POC Glucose 121 mg/dl (70-99) H 05/26/20 03:49 Calcium 7.9 mg/dl (8.5-10.1) L 05/26/20 05:16 Blood Type O Negative 05/25/20 06:29 Antibody Screen NEGATIVE 05/25/20 06:29 Diagnostic Findings TWO VIEWS RIGHT KNEE CLINICAL HISTORY: Postoperative examination. FINDINGS: AP and crosstable lateral portable views of the right knee are obtained. A right knee arthroplasty is in near anatomic alignment. There has been undersurface remodeling of the patella. No acute fracture is seen. There are expected postoperative changes around the knee including a surgical drain, soft tissue edema, and subcutaneous gas. IMPRESSION: Expected postoperative changes status post right knee arthroplasty. No acute fracture is seen.
[2020-05-26] MEDS ORDERED: METFORMIN HCL 500 MG TAB PO SCH (09:00)
[2020-05-26] MEDS ORDERED: lisinopriL 40 MG TAB PO SCH (09:00)
[2020-05-26] MEDS ORDERED: METOPROLOL TARTRATE 50 MG TAB PO SCH (09:00)
[2020-05-26] MEDS ORDERED: MULTIVITAMIN TAB PO SCH (09:00)
[2020-05-26] MEDS ORDERED: CHLORTHALIDONE 25 MG TAB PO SCH (09:00)
[2020-05-26] MEDS: DOCUSATE SODIUM 100 MG CAP PO SCH (09:33)
[2020-05-26] MEDS: ASPIRIN 81 MG ECTAB PO SCH (09:33)
[2020-05-26] MEDS: FERROUS GLUCONATE 324 MG TAB PO SCH (09:33)
--- NOTE | 2020-05-26 09:33 | Hospitalist Progress Note ---
Date of Service May 26, 2020 Assessment & Plan (1) Osteoarthritis of right knee: POD#1 S/p right TKA with Dr. Barakat on 05/25. EBL 5cc. Pre-op h/h 13.6/40 - No operative complications per operative note - Post-op care per primary team - DVT ppx per primary team -- ASA 81mg BID ordered - h/h 11.6/33.8 -- acute blood loss following surgery as well as dilutional from IVF RADHA drain per primary service (2) Diabetes: A1c was 7.6% in 04/2020. - Hold home metformin - Glycemic pharmacist consulted - Long acting and sliding scale insulin per their recommendations - Given A1c, can discharge on home regimen with outpatient adjustment as needed (3) Hypertension: BP is 133/74, stable. - Continue home chlorthalidone, metoprolol, and lisinopril (4) Recurrent UTI: Is on cefazolin as routine post-operative abx. Would pull Morris as soon as able, but otherwise no acute management. Resume outpatient macrobid at discharge (5) Dyslipidemia: In NOV, but not on statin or fibrate as outpatient per records. - Outpatient follow up (6) DVT prophylaxis: ASA 81 mg PO BID per primary team Thank you for the consult. Hospitalist service will sign off. Please page/call with any questions or concerns. (7) Acute blood loss anemia: Admission and Anticipated Discharge Date Admission Date: May 25, 2020 Subjective Patient evaluated this morning. Mild pain but controlled with pain medications ordered. Denies numbness/tingling. Able to move toes/ankle more today and was excited about progress. Eating/drinking without difficulty. No further nausea/vomiting. Tolerated breakfast without difficulty. Denies fever, chills, chest pain, cough, sputum production, abdominal pain, dysuria at this time. Hopeful for discharge later today either with or without drain pending output and if sent home home health will remove in next day or two. Review of Systems Review of Systems: All systems reviewed & are unremarkable except as noted in HPI & below Physical Exam Constitutional: WD/WN, vitals as above Eyes: EOM intact bilaterally; no conjunctival abnormality ENMT: external ear and nose normal, oropharynx normal Neck: trachea midline, no thyromegaly normal visual inspection Respiratory: normal respiratory effort, lungs clear to auscultation no respiratory distress Cardiovascular: RRR, no murmur, no edema Gastrointestinal (Abdomen): Inspection/Auscultation: abdomen normal to inspection; abdomen not distended Musculoskeletal: no cyanosis or clubbing, extremities motor strength 5/5 dressing to RIGHT knee c/d/i NVI 2+ pulses dp, pt bilaterally calves non-tender to palpation Skin: no rashes, warm and dry Neurologic: moves all extremities and awake Psychiatric: Orientation: alert, oriented to person and cooperative Lymphatic: no cervical or axillary lymphadenopathy Results & Data Results & Data ([facility]) Vital Signs (Past 12 Hours) Vital Signs Temp Pulse Resp BP Pulse Ox 05/26/20 07:22 36.8 C 68 16 133/74 95 05/26/20 03:11 37.1 C 70 16 122/72 94 05/25/20 22:54 37.1 C 77 16 145/75 H 93 Laboratory Results 05/26/20 05/26/20 05/26/20 Range/Units 08:10 05:16 05:16 WBC 13.48 H (4.8-10.8) K/uL RBC 3.88 L (4.2-5.4) M/uL Hgb 11.6 L (12.0-16.0) g/dL Hct 33.8 L (37-47) % MCV 87.1 (80-100) fL MCH 29.9 (25-34) pg MCHC 34.3 (32-36) g/dL RDW Std Deviation 42.5 (36.4-46.3) fL RDW Coeff of Hugh 13.3 (11.5-14.5) % Plt Count 203 (130-400) K/uL MPV 10.8 H (7.4-10.4) fL Sodium 142 (136-145) mmol/L Potassium 3.6 (3.5-5.1) mmol/L Chloride 109 H (98-107) mmol/L Carbon Dioxide 26 (21-32) mmol/L Anion Gap 7.0 (3-11) BUN 24 H (7-18) mg/dl Creatinine 1.04 (0.6-1.2) mg/dl Est Cr Clr Drug Dosing 64.9 ml/min Est GFR ( Amer) 68.1 Est GFR (Non-Af Amer) 58.8 BUN/Creatinine Ratio 23.0 H (10-20) Glucose 119 H (70-99) mg/dl POC Glucose 131 H (70-99) mg/dl Calcium 7.9 L (8.5-10.1) mg/dl 05/26/20 05/26/20 05/25/20 Range/Units 03:49 00:01 20:41 WBC (4.8-10.8) K/uL RBC (4.2-5.4) M/uL Hgb (12.0-16.0) g/dL Hct (37-47) % MCV (80-100) fL MCH (25-34) pg MCHC (32-36) g/dL RDW Std Deviation (36.4-46.3) fL RDW Coeff of Hugh (11.5-14.5) % Plt Count (130-400) K/uL MPV (7.4-10.4) fL Sodium (136-145) mmol/L Potassium (3.5-5.1) mmol/L Chloride (98-107) mmol/L Carbon Dioxide (21-32) mmol/L Anion Gap (3-11) BUN (7-18) mg/dl Creatinine (0.6-1.2) mg/dl Est Cr Clr Drug Dosing ml/min Est GFR ( Amer) Est GFR (Non-Af Amer) BUN/Creatinine Ratio (10-20) Glucose (70-99) mg/dl POC Glucose 121 H 121 H 167 H (70-99) mg/dl Calcium (8.5-10.1) mg/dl 05/25/20 05/25/20 Range/Units 17:01 12:00 WBC (4.8-10.8) K/uL RBC (4.2-5.4) M/uL Hgb (12.0-16.0) g/dL Hct (37-47) % MCV (80-100) fL MCH (25-34) pg MCHC (32-36) g/dL RDW Std Deviation (36.4-46.3) fL RDW Coeff of Hugh (11.5-14.5) % Plt Count (130-400) K/uL MPV (7.4-10.4) fL Sodium (136-145) mmol/L Potassium (3.5-5.1) mmol/L Chloride (98-107) mmol/L Carbon Dioxide (21-32) mmol/L Anion Gap (3-11) BUN (7-18) mg/dl Creatinine (0.6-1.2) mg/dl Est Cr Clr Drug Dosing ml/min Est GFR ( Amer) Est GFR (Non-Af Amer) BUN/Creatinine Ratio (10-20) Glucose (70-99) mg/dl POC Glucose 258 H 218 H (70-99) mg/dl Calcium (8.5-10.1) mg/dl PG Care Time/CCT Total # of Minutes Spent Total Time Spent with Patient: Total time spent is greater than 50% in coordination of care (as documented) at patient's floor/unit and/or counseling patient: Coding Level of Care Code 06885 Subseq Hosp Care Lvl 2 Diagnoses Osteoarthritis of right knee M17.11 Diabetes E11.9 Hypertension I10 Recurrent UTI N39.0 Dyslipidemia E78.5 DVT prophylaxis Z29.9 Acute blood loss anemia D62
--- NOTE | 2020-05-27 11:58 | Discharge Summary ---
Date of Service May 27, 2020 Admission HPI Per Admitting Provider Ms Hendrickson is a 59 year old female who complains of right knee pain, presents for pre-op evaluation prior to a right total knee replacement at [facility]. She presents with pain on the right side. Currently the patient states that the symptoms are moderate-severe. The pain is described as aching, sharp and throbbing. The symptoms are aggravated by ascending stairs, descending stairs, daily activities, driving, first steps while awake, kneeling, movement, repetitive activities, sleeping on the affected side, squatting, standing, walking and weight bearing. In addition to right knee pain the patient is also experiencing limping, nighttime awakening and pain. Patient has had arthroscopic surgery, on 06/25/2013 Dr. Barakat performed right knee arthroscopy, Partial medial meniscectomy, partial lateral meniscectomy, chondroplasty, patella. she has also had prior cortisone injections without much relief. Admission Exam Per Admitting Provider Physical Exam: ht: 5ft 4in wt: 95kg Constitutional: WD/WN, vitals as above no acute distress Respiratory: normal respiratory effort, lungs clear to auscultation no respiratory distress, no labored breathing and does not use accessory muscles Cardiovascular: RRR, no murmur, no edema Gastrointestinal (Abdomen): normal bowel sounds, soft, nontender, no hepatosplenomegaly Musculoskeletal: Knee: + knee abnormal to inspection (Right knee), + effusion (+1 effusion), + surgical incision, + limited ROM of knee (ROM 0/3/110), + knee ROM with crepitation, + joint line tenderness (medial joint line) and + Kika's sign positive; no deformity, no skin erythema, no ecchymosis, no valgus laxity, no varus laxity, anterior drawer test negative, Daniel's sign negative and pivot shift test negative Principal Diagnosis Right knee DJD Discharge Data Allergies Allergy/AdvReac Type Severity Reaction Status Date / Time chlorhexidine Allergy Mild Rash Verified 05/25/20 07:01 Msdfnkv-[id number]-Xdf Reductase AdvReac Mild Muscle Pain Verified 05/25/20 06:07 Inhibitor Sulfa (Sulfonamide AdvReac Mild metalic Verified 05/25/20 06:07 Antibiotics) taste; nausea codeine AdvReac Unknown "makes my Verified 05/25/20 06:07 heart race" nifedipine AdvReac Unknown BLLE edema Verified 05/25/20 06:07 Consultations 05/25/20 12:22 Consult Case Management - Discharge Planning Routine Consult Hospitalist Routine Procedures Performed Operation Date: 05/25/20 08:35 Actual Procedures p Right Total Knee Arthroplasty(Right) - Roosevelt Barakat DO Ordered Studies 05/25/20 05:00 US - OR guided needle placemen Routine Hospital Course (1) Osteoarthritis of right knee: Patient was admitted on the above-noted date and had to both the surgery performed which she tolerated well. Postoperatively, [facility] hospitalist service was consulted to follow the patient medically during her stay. On her first postoperative day, she was without complaints. Pain was controlled. Vital signs were stable and she was afebrile. Hemoglobin was 11.6. Dressings were clean, dry, and intact. Calves are soft and nontender. Neurovascular is intact. She was started on PT and OT protocols and continued on DVT prophylaxis and pain management. She continued to remain medically stable and progress with her physical therapy. She was doing well and was felt she be discharged home. Total Time Total Time Spent Total Time Spent (In Minutes): 5 Discharge Plan Discharge Items Patient Disposition: Home - Home Health Services Reason For Visit: Unilateral Primary Osteoarthritis of Right Knee Discharge Diagnosis: Right Knee Osteoarthritis Activity: Per Instructions section Weightbearing Comment: as tolerated with walker Non-emergency contact: Surgeon Call non-emergency contact if: your pain is not controlled, your temperature is above 101.5, your wound has increased redness and your wound has increased drainage Follow-up/Referrals: Roxi Cee DO [Primary Care Provider] - Diet: Carb Consistent or DM2 Addtl Attending Provider Instructions: ACTIVITY RECOMMENDATIONS: SELF CARE INSTRUCTIONS AFTER TOTAL KNEE REPLACEMENT A. You may need to continue a physical therapy program after discharge from the hospital. There are several options available to you. Your doctor will assist you in selecting the best one for you. 1. An out-patient facility 2 to 3 times a week for therapy or home therapy. 2. Continue working on all exercises taught to you in the hospital. Your goals should be to increase bending of your knee to 90 degrees and beyond and to fully straighten your knee. B. You may progress at your own pace from walking with a walker or crutches to a cane; then to no assistive devices. C. Make walking a part of your daily routine. Be up as much as comfortable with rest periods throughout the day. Rest with leg elevation is very important. Use the ice wrap frequently for the first 3-4 weeks. D. There are no restrictions on activities. 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 E. Wear the long elastic stockings (STANISLAV hose) 20 hours a day for 2 weeks after surgery. They can be removed several times a day for laundering and for a bath. F. You may shower, no tub baths until cleared by your doctor. SPECIAL CARE INSTRUCTIONS: VERY IMPORTANT TO READ AND REVIEW A. There are a few signs you need to watch for after you are home. Call [facility] if you notice any of the followin. Increased severe knee pain. Some pain is expected especially when you exercise. 2. Increased swelling in your leg or knee; pain or swelling of the calf muscle in either lower leg. 3. Any fluid drainage from the incision. 4. Shortness of breath or chest pain. B. Please call [facility] at if you have any concerns or questions about your operation or recovery. The doctor or his nurse will return your call promptly. C. You must take antibiotics before dental work, bladder, bowel or other surgery. Your doctor will provide you with a permanent care to carry describing this precaution. IMPORTANT: * REMEMBER TO TAKE ASPIRIN, 81 MG, TWICE DAILY FOR 4 WEEKS UNLESS OTHERWISE DIRECTED. THIS IS YOUR BLOOD THINNER. * HIGH RISK PATIENTS MAY BE PRESCRIBED A STRONGER BLOOD THINNER. THIS WILL BE PROVIDED AT DISCHARGE. * CALL IF INCREASED PAIN, REDNESS, DRAINAGE OR FEVER GREATER THAT 101. * WEAR STANISLAV HOSE 20 HOURS PER DAY FOR 2 WEEKS. * DERMABOND Prineo- This is a mesh tape dressing that is covered with glue. It should remain in place until the incision is properly healed, usually 10-14 days. This dressing is designed to naturally slough off. You may trim the excess mesh tape as it peels off. Incision may be briefly wet in a shower. Dry immediately by blotting with a clean, dry towel. Do not bath or swim until instructed by your doctor. Do not scratch, rub, or pick at the dressing. Do not apply any topical ointments or lotions until dressing is completely removed and/or instructed by your doctor. There may be a small piece of suture material at one end of your incision. Do not pull or trim this. If it is bothersome or catching on clothing, you may cov er it with a band-aid. Call the office with any questions. . FOLLOW UP VISIT: If appointment is not already scheduled: Please call [facility] to make a follow-up appointment for 2 weeks after your surgery at . Pending Studies at Discharge: No Stand-Alone Forms: My [facility], Opioid Pain Management, Smoking Cessation Medications and DC Order Prescriptions: New aspirin 81 mg Tablet,Delayed Release (Dr/Ec) 81 mg PO BID 30 Days Qty: 60 RF: 0 acetaminophen 500 mg Tablet 1,000 mg PO Q8 21 Days Qty: 126 RF: 0 oxycodone 5 mg Tablet 5 - 10 mg PO Q6H PRN (Reason: pain) Qty: 30 RF: 0 docusate sodium 100 mg Capsule 100 mg PO BID 10 Days Qty: 20 RF: 0 cefadroxil 500 mg capsule 500 mg PO BID 10 Days Qty: 20 RF: 0 Continued nystatin 100,000 unit/gram powder 1 appln TOP DAILY Qty: 60 RF: 0 metformin 1,000 mg tablet 1,000 mg PO BID 90 Days Qty: 180 RF: 3 Novolog Flexpen U-100 Insulin 100 unit/mL (3 mL) insulin pen See Rx Instructions subcut DAILY Qty: 30 RF: 5 chlorthalidone 25 mg tablet 25 mg PO QAM Qty: 90 RF: 1 phenazopyridine [Pyridium] 100 mg tablet 100 mg PO TID PRN (Reason: pain) Qty: 6 RF: 0 nitrofurantoin monohyd/m-cryst [Macrobid] 100 mg capsule 100 mg PO Q12H 30 Days Qty: 60 RF: 0 triamcinolone acetonide 0.025 % cream See Rx Instructions topical DAILY RF: 0 metoprolol tartrate 50 mg tablet 50 mg PO QAM RF: 0 lisinopril 40 mg tablet 40 mg PO QAM RF: 0 Centrum Silver 0.4-300-250 mg-mcg-mcg tablet 1 tab PO QAM RF: 0 ketoconazole 2 % Shampoo 1 ea TOPICAL UD RF: 0 ketoconazole 2 % Cream 1 applic TOPICAL UD RF: 0 Tresiba FlexTouch U-100 100 unit/mL (3 mL) insulin pen 94 units SUBCUT QAM RF: 0 Discharge Orders: Discharge Order (Routine); Ordered 05/26/20 Ordered By: Jerry Mckay/Other Patient Handouts: DVT Post Op Prevention Admission Data Admit Date/Time: 05/25/20 10:37 Attending Provider: Roosevelt Barakat Admit Provider: Roosevelt Barakat Primary Care Provider: Roxi Cee Other Providers: Roosevelt Renee ; Alejandro Souza Healt Other Interventions: Discharge Summary Assessment (RN) Last Done: 05/26/20 12:35
== END 2020-05-26 14:19 | disposition home health service (06) | DRG 470 ==
LOC: ASU 05:50 → 3E 05:50 → OBSVTOIN 10:37